=== PATIENT | male | born 1980 | race Caucasian/White ===

== ENCOUNTER 2019-08-25 07:55 | Inpatient (IN) | payer MEDICAID ==
[~2019-08-25] VITALS: Ht 188 cm; Wt 75.0 kg
[2019-08-25 09:10] LABS: BASOPHILS % (AUTO) 0.2 % (0-1); EOSINOPHILS # (AUTO) 0.1 X10'3 (0-0.9); EOSINOPHILS % (AUTO) 0.6 % (0-6); HEMATOCRIT 44.1 % (42.0-52.0); HEMOGLOBIN 14.4 g/dl (14.0-17.9); LYMPHOCYTES # (AUTO) 1.3 X10'3 (1.1-4.8); LYMPHOCYTES % (AUTO) 8.3 % (21-51); MEAN CORPUSCULAR HGB CONC 32.7 g/dL (33.0-36.5); MEAN CORPUSCULAR VOLUME 91.7 FL (78-98); MEAN PLATELET VOLUME 8.2 FL (7.4-10.4); MONOCYTES # (AUTO) 1.3 X10'3 (0-0.9); MONOCYTES % (AUTO) 8.3 % (2-12); NEUTROPHILS # (AUTO) 13.1 X10'3 (1.8-7.7); NEUTROPHILS % (AUTO) 82.6 % (42-75); PLATELET COUNT 325 X10'3 (140-440); RED BLOOD COUNT 4.81 X10'6 (4.70-6.10); RED CELL DISTRIBUTION WIDTH 14.3 % (11.5-14.5); WHITE BLOOD COUNT 15.8 X10'3 (4.5-11.0)
[2019-08-25 09:26] LABS: PARTIAL THROMBOPLASTIN TIME 34 SECONDS (22-32)
[2019-08-25 09:27] LABS: ALANINE AMINOTRANSFERASE 24 U/L (12-78); ALBUMIN 4.1 G/DL (3.4-5.0); ALBUMIN/GLOBULIN RATIO 1.1 (1.1-1.5); ALKALINE PHOSPHATASE 70 IU/L (46-116); ANION GAP 10 (8-16); ASPARTATE AMINO TRANSFERASE 19 U/L (10-37); BILIRUBIN,TOTAL 0.9 MG/DL (0.1-1.0); BLOOD UREA NITROGEN 13 MG/DL (7-18); BUN/CREATININE RATIO 15.1 (5.4-32.0); CALCIUM 9.1 MG/DL (8.5-10.1); CHLORIDE 100 MMOL/L (99-107); CREATININE 0.86 MG/DL (0.60-1.10); GLUCOSE 102 MG/DL (70-104); MAGNESIUM 1.9 MG/DL (1.5-2.4); POTASSIUM 3.8 MMOL/L (3.5-5.1); SODIUM 135 MMOL/L (135-145); TOTAL CARBON DIOXIDE 25.4 MMOL/L (24-32); eGFR > 90 ML/MIN
[2019-08-25] MEDS ORDERED: vancomycin/NS 1 GM ADD-VANTAGE 250 ML IV ONE (10:05)
[2019-08-25] MEDS ORDERED: normal saline 1000ML IV soln IVB ONE (10:05)
[2019-08-25] MEDS ORDERED: ceFOXitin 1 GM/D5W 50mL IVPB 50 ML IV ONE (10:05)
[2019-08-25] MEDS ORDERED: morphine 4 MG/ML inj SYRINge IV ONE (10:05)
[2019-08-25] MEDS ORDERED: iohexol 300mg/ml 100ml inj. ONE (10:19)
[2019-08-25] MEDS ORDERED: ondansetron/PF 4mg/2ml inj IV ONE (10:45)
[2019-08-25] MEDS ORDERED: TETanus/Pertussis (Acell)/Diphther VAC/PF (Tdap-Adult) 0.5ml syringe IMVAC ONE (10:45)
[2019-08-25] MEDS ORDERED: NO HOME MEDS (11:24)
[2019-08-25] MEDS ORDERED: mag hydrox/Alum hydrox/simeth 30ml oral suspension PO PRN (11:40)
[2019-08-25] MEDS ORDERED: magnesium 2GM in 50ml NS 50 ML IV PRN (11:40)
[2019-08-25] MEDS ORDERED: magnesium Cl slow-release 64mg tablet PO PRN (11:40)
[2019-08-25] MEDS ORDERED: acetaminophen 325mg tablet PO PRN ×2 (11:40)
[2019-08-25] MEDS ORDERED: potassium Cl 20 mEq SR tablet PO PRN ×2 (11:40)
[2019-08-25] MEDS ORDERED: HYDROcodone/acetaminophen 5mg/325mg tablet PO PRN (11:40)
[2019-08-25] MEDS ORDERED: morphine 2 MG/ML inj. syringe IV PRN ×2 (11:40)
[2019-08-25] MEDS ORDERED: magnesium 4gm in 100ml NS 100 ML IV PRN (11:40)
[2019-08-25] MEDS ORDERED: potassium CL 10mEq/100ml bag 100 ML IV PRN ×2 (11:40)
[2019-08-25] MEDS ORDERED: magnesium hydroxide 30ml (MOM) UD suspension PO PRN (11:40)
[2019-08-25] MEDS ORDERED: ondansetron/PF 4mg/2ml inj IV PRN (11:40)
[2019-08-25] MEDS ORDERED: diphenhydrAMINE 25mg capsule PO PRN (11:40)
[2019-08-25] MEDS: HYDROcodone/acetaminophen 10/325mg tab PO PRN ×2 (12:10→17:44)
[2019-08-25 12:27] LABS: HEMOGLOBIN A1C 5.7 % (4.5-6.2)
[2019-08-25] MEDS: normal saline 1000ml 1,000 ML IV SCH ×2 (13:21→21:40)
[2019-08-25] MEDS: piperacillin/tazo 3.375gm/50ml 50 ML IV SCH ×2 (13:49→16:44)
[2019-08-25 14:45] VITALS: BP 148/85
--- NOTE | 2019-08-25 15:08 | NUR ---
Received report from JULIAN Ventura in ER. Patient came up to the floor with zosyn and normal saline infusing. VSS stable at 98.0F BP 148/85 HR 77 O2 98% on room air. Pain at an 8/10 RR 14. will continue to monitor.
[2019-08-25 18:00] VITALS: BP 130/87
[2019-08-25] MEDS: K and/or MAG REPLACEMENT MC SCH (20:00)
[2019-08-25] MEDS: heparin, porcine 5000 units/ml vial SQ SCH (20:00)
[2019-08-25] MEDS: vancomycin/NS 1 GM ADD-VANTAGE 250 ML X 1 DOSE IV SCH (20:12)
[2019-08-25 23:28] VITALS: BP 133/89
[2019-08-26] MEDS: piperacillin/tazo 3.375gm/50ml 50 ML IV SCH ×3 (00:15→17:57)
[2019-08-26 01:50] LABS: CLARITY,URINE CLEAR (Clear); COLOR,URINE YELLOW (Yellow); GLUCOSE, URINE NEGATIVE (Neg); KETONES,URINE NEGATIVE (Neg); LEUKOCYTE ESTERASE ,URINE NEGATIVE (Neg); NITRITES, URINE NEGATIVE (Neg); OCCULT BLOOD,URINE NEGATIVE (Neg); PROTEIN,URINE NEGATIVE (Neg)
[2019-08-26 01:54] LABS: UA COLLECTION TYPE CLN CATCH MIDSTREAM
[2019-08-26 01:58] LABS: URINE AMPHETAMINE SCREEN POSITIVE (Neg); URINE BARBITUATE SCREEN NEGATIVE (Neg); URINE BENZODIAZEPINES SCREEN NEGATIVE (Neg); URINE CANNABINOID SCREEN POSITIVE (Neg); URINE COCAINE SCREEN NEGATIVE (Neg); URINE METHADONE SCREEN NEGATIVE (Neg); URINE OPIATE SCREEN POSITIVE (Neg); URINE PHENCYCLIDINE SCREEN NEGATIVE (Neg)
[2019-08-26] MEDS: vancomycin/NS 1 GM ADD-VANTAGE 250 ML X 1 DOSE IV SCH ×2 (03:07→11:10)
[2019-08-26] MEDS: normal saline 1000ml 1,000 ML IV SCH ×2 (03:07→17:58)
[2019-08-26 05:27] LABS: BASOPHILS % (AUTO) 0.1 % (0-1); EOSINOPHILS # (AUTO) 0.2 X10'3 (0-0.9); EOSINOPHILS % (AUTO) 1.6 % (0-6); HEMATOCRIT 42.2 % (42.0-52.0); HEMOGLOBIN 13.5 g/dl (14.0-17.9); LYMPHOCYTES # (AUTO) 1.3 X10'3 (1.1-4.8); LYMPHOCYTES % (AUTO) 9.7 % (21-51); MEAN CORPUSCULAR HEMOGLOBIN 29.5 PG (27.0-31.0); MEAN CORPUSCULAR HGB CONC 31.9 g/dL (33.0-36.5); MEAN CORPUSCULAR VOLUME 92.5 FL (78-98); MEAN PLATELET VOLUME 8.5 FL (7.4-10.4); MONOCYTES # (AUTO) 1.2 X10'3 (0-0.9); MONOCYTES % (AUTO) 8.9 % (2-12); NEUTROPHILS % (AUTO) 79.7 % (42-75); PLATELET COUNT 267 X10'3 (140-440); RED BLOOD COUNT 4.56 X10'6 (4.70-6.10); RED CELL DISTRIBUTION WIDTH 14.5 % (11.5-14.5); WHITE BLOOD COUNT 13.8 X10'3 (4.5-11.0)
[2019-08-26 05:31] LABS: ALANINE AMINOTRANSFERASE 18 U/L (12-78); ALBUMIN 3.1 G/DL (3.4-5.0); ALKALINE PHOSPHATASE 57 IU/L (46-116); ANION GAP 7 (8-16); ASPARTATE AMINO TRANSFERASE 13 U/L (10-37); BILIRUBIN,TOTAL 0.4 MG/DL (0.1-1.0); BLOOD UREA NITROGEN 13 MG/DL (7-18); BUN/CREATININE RATIO 15.5 (5.4-32.0); CALCIUM 8.3 MG/DL (8.5-10.1); CHLORIDE 107 MMOL/L (99-107); CHOL/HDL RATIO 2.3 (0.00-4.99); CHOLESTEROL 134 MG/DL (0-200); CREATININE 0.84 MG/DL (0.60-1.10); GLUCOSE 97 MG/DL (70-104); HDL CHOLESTEROL 58 MG/DL (35-60); LDL CHOLESTEROL 67 MG/DL (50-100); MAGNESIUM 1.9 MG/DL (1.5-2.4); PHOSPHORUS 3.2 MG/DL (2.3-4.5); POTASSIUM 4.1 MMOL/L (3.5-5.1); SODIUM 138 MMOL/L (135-145); TOTAL CARBON DIOXIDE 23.6 MMOL/L (24-32); TOTAL PROTEIN 6.3 G/DL (6.4-8.2); TRIGLYCERIDES 42 MG/DL (20-135); eGFR > 90 ML/MIN
--- NOTE | 2019-08-26 06:25 | NUR ---
Patient in room [facility]. I have received report from JULIAN DAWSON and had the opportunity to ask questions and assume patient care.
[2019-08-26 07:00] VITALS: BP 124/87
[2019-08-26] MEDS: K and/or MAG REPLACEMENT MC SCH ×2 (07:51→20:00)
[2019-08-26] MEDS: heparin, porcine 5000 units/ml vial SQ SCH ×2 (07:59→19:45)
[2019-08-26] MEDS ORDERED: VANCOMYCIN LEVEL IV ONE (10:30)
[2019-08-26 11:00] VITALS: BP 135/89
--- NOTE | 2019-08-26 15:05 | NUR ---
Malnutrition Consult: Pt admit w/ L hand abscess and meth abuse. PO 100% avg regular diet, normal strength, and no edema. Pt does not meet malnutrition criteria at this time. Addendum: 08/26/19 at [address] Amended: Links added.
[2019-08-26] MEDS: HYDROcodone/acetaminophen 10/325mg tab PO PRN (17:57)
--- NOTE | 2019-08-26 18:20 | NUR ---
Problems reprioritized. Patient report given, questions answered & plan of care reviewed with JULIAN DAWSON.
[2019-08-26] MEDS ORDERED: VANCOMYCIN 1,500MG inj. 1,500 MG in normal saline 500ml IV soln 500 ML IV SCH (19:00)
[2019-08-26 19:12] VITALS: BP 128/88
[2019-08-26] MEDS: lactobacillus rhamnosus 10,000 MMU CELLS/CAPSULE PO SCH (19:45)
[2019-08-26] MEDS: VANCOmycin 1250MG/NS 250ml Bag 250 ML IV SCH (19:50)
[2019-08-27] VITALS: BP 134/90
[2019-08-27] MEDS: piperacillin/tazo 3.375gm/50ml 50 ML IV SCH ×2 (00:19→08:40)
--- NOTE | 2019-08-27 01:09 | NUR ---
pt requesting to shower. set up for pre op shower. refused to have abscess on left hand covered for shower said it needed to be rinsed off and have heat on it.
[2019-08-27 01:11] VITALS: BP 134/90
--- NOTE | 2019-08-27 01:29 | NUR ---
after shower pt refuses to have abscess rewrapped, says he just wants to sleep and get rest. will continue to monitor
[2019-08-27] MEDS: VANCOmycin 1250MG/NS 250ml Bag 250 ML IV SCH (03:05)
[2019-08-27] MEDS: normal saline 1000ml 1,000 ML IV SCH ×2 (03:40→08:47)
[2019-08-27 05:36] LABS: ALANINE AMINOTRANSFERASE 20 U/L (12-78); ALBUMIN/GLOBULIN RATIO 0.8 (1.1-1.5); ALKALINE PHOSPHATASE 55 IU/L (46-116); ANION GAP 7 (8-16); ASPARTATE AMINO TRANSFERASE 12 U/L (10-37); BILIRUBIN,TOTAL 0.4 MG/DL (0.1-1.0); BLOOD UREA NITROGEN 13 MG/DL (7-18); BUN/CREATININE RATIO 12.3 (5.4-32.0); CALCIUM 8.7 MG/DL (8.5-10.1); CHLORIDE 103 MMOL/L (99-107); CREATININE 1.06 MG/DL (0.60-1.10); GLUCOSE 94 MG/DL (70-104); MAGNESIUM 1.9 MG/DL (1.5-2.4); PHOSPHORUS 3.7 MG/DL (2.3-4.5); POTASSIUM 4.5 MMOL/L (3.5-5.1); SODIUM 136 MMOL/L (135-145); TOTAL CARBON DIOXIDE 26.3 MMOL/L (24-32); TOTAL PROTEIN 6.8 G/DL (6.4-8.2); eGFR 78 ML/MIN
[2019-08-27 05:51] LABS: BASOPHILS # (AUTO) 0.1 X10'3 (0-0.2); BASOPHILS % (AUTO) 0.6 % (0-1); EOSINOPHILS # (AUTO) 0.3 X10'3 (0-0.9); EOSINOPHILS % (AUTO) 2.6 % (0-6); HEMATOCRIT 41.7 % (42.0-52.0); HEMOGLOBIN 13.5 g/dl (14.0-17.9); LYMPHOCYTES # (AUTO) 1.5 X10'3 (1.1-4.8); LYMPHOCYTES % (AUTO) 12.6 % (21-51); MEAN CORPUSCULAR HEMOGLOBIN 29.6 PG (27.0-31.0); MEAN CORPUSCULAR HGB CONC 32.3 g/dL (33.0-36.5); MEAN CORPUSCULAR VOLUME 91.4 FL (78-98); MEAN PLATELET VOLUME 9.2 FL (7.4-10.4); MONOCYTES # (AUTO) 1.1 X10'3 (0-0.9); MONOCYTES % (AUTO) 9.4 % (2-12); NEUTROPHILS % (AUTO) 74.8 % (42-75); PLATELET COUNT 298 X10'3 (140-440); RED BLOOD COUNT 4.56 X10'6 (4.70-6.10); RED CELL DISTRIBUTION WIDTH 14.6 % (11.5-14.5); WHITE BLOOD COUNT 12.1 X10'3 (4.5-11.0)
[2019-08-27] MEDS: heparin, porcine 5000 units/ml vial SQ SCH (06:54)
[2019-08-27 07:00] VITALS: BP 124/89
[2019-08-27 08:00] VITALS: BP 124/89
[2019-08-27] MEDS: lactobacillus rhamnosus 10,000 MMU CELLS/CAPSULE PO SCH (08:40)
[2019-08-27] MEDS: HYDROcodone/acetaminophen 10/325mg tab PO PRN (08:40)
--- NOTE | 2019-08-27 09:08 | NUR ---
PAGER ID: [phone] MESSAGE: Joel Balbuena [id number] Pt. wants to leave AMA for a cigarette. Ativan and nicotine patch? Please speak with pt? Sumi [phone]
--- NOTE | 2019-08-27 09:25 | NUR ---
Pt. left [facility]. aware.
[2019-08-27] MEDS ORDERED: MESSAGE TO NURSING PO ONE (17:30)
[2019-08-27] MEDS ORDERED: VANCOMYCIN LEVEL IV ONE (18:30)
== END 2019-08-27 09:24 | disposition left against medical advice (07) | DRG 383 ==
LOC: ER 07:56 → ED HOLD 11:40 → SUR 3N 14:17
PROVIDERS: ADMIT Family Medicine; ATTEND Family Medicine
PROC: 3E0234Z Introduction of Serum, Toxoid and Vaccine into Muscle, Percutaneous Approach (ICD-10-PCS; principal; 2019-08-25)
PROC: BP2K1ZZ Computerized Tomography (CT Scan) of Left Forearm using Low Osmolar Contrast (ICD-10-PCS; 2019-08-25)
DX: L02.512 Cutaneous abscess of left hand (principal); F12.10 Cannabis abuse, uncomplicated; F15.10 Other stimulant abuse, uncomplicated; F17.210 Nicotine dependence, cigarettes, uncomplicated; X58.XXXA Exposure to other specified factors, initial encounter; Z53.29 Procedure and treatment not carried out because of patient's decision for other reasons; R65.10 Systemic inflammatory response syndrome (SIRS) of non-infectious origin without acute organ dysfunction; S61.032A Puncture wound without foreign body of left thumb without damage to nail, initial encounter; Z87.11 Personal history of peptic ulcer disease; Y93.89 Activity, other specified; Y92.89 Other specified places as the place of occurrence of the external cause; Y99.8 Other external cause status; Z23 Encounter for immunization; Z71.6 Tobacco abuse counseling; Z71.51 Drug abuse counseling and surveillance of drug abuser
CPT/HCPCS: 36415; 71045; 73201; 80053; 80061; 80202; 80305; 81003; 83036; 83605; 83735; 84100; 84145; 85025; 85610; 85730; 87040; 87070; 87075; 87077; 87081; 87186; 90471; 90715; 96365; 96368; 96375; 96376; 99285; G0378; J0694; J1644; J2270; J2405; J2543; J3370; J7030; Q9967

== ENCOUNTER 2020-11-03 09:41 | Emergency (ER) | payer MEDICAID ==
[~2020-11-03] VITALS: Ht 188 cm; Wt 77.3 kg
[~2020-11-03 09:41] MED LIST: NO HOME MEDS
[2020-11-03] MEDS ORDERED: CefTRIAXone 2gm/D5W 50ml BAG 50 ML IV ONE (09:45)
[2020-11-03] MEDS ORDERED: vancomycin/NS 1 GM ADD-VANTAGE 250 ML IV ONE (09:45)
[2020-11-03] MEDS ORDERED: normal saline 1000ML IV soln IV ONE (10:20)
[2020-11-03] MEDS ORDERED: ondansetron/PF 4mg/2ml inj IV ONE ×2 (10:20→11:40)
[2020-11-03] MEDS ORDERED: morphine 4 MG/ML inj SYRINge IV ONE (10:20)
[2020-11-03 10:31] LABS: BASOPHILS # (AUTO) 0.1 X10'3 (0-0.2); BASOPHILS % (AUTO) 0.4 % (0-1); EOSINOPHILS % (AUTO) 0.2 % (0-6); HEMATOCRIT 37.7 % (42.0-52.0); HEMOGLOBIN 12.2 g/dl (14.0-17.9); LYMPHOCYTES # (AUTO) 1.3 X10'3 (1.1-4.8); LYMPHOCYTES % (AUTO) 9.3 % (21-51); MEAN CORPUSCULAR HEMOGLOBIN 30.1 PG (27.0-31.0); MEAN CORPUSCULAR HGB CONC 32.4 g/dL (33.0-36.5); MEAN CORPUSCULAR VOLUME 92.7 FL (78-98); MONOCYTES % (AUTO) 7.2 % (2-12); NEUTROPHILS # (AUTO) 11.1 X10'3 (1.8-7.7); NEUTROPHILS % (AUTO) 82.9 % (42-75); PLATELET COUNT 351 X10'3 (140-440); RED BLOOD COUNT 4.06 X10'6 (4.70-6.10); RED CELL DISTRIBUTION WIDTH 14.9 % (11.5-14.5); WHITE BLOOD COUNT 13.4 X10'3 (4.5-11.0)
[2020-11-03 10:42] LABS: ALANINE AMINOTRANSFERASE 115 U/L (12-78); ALBUMIN 2.7 G/DL (3.4-5.0); ALBUMIN/GLOBULIN RATIO 0.9 (1.1-1.5); ALKALINE PHOSPHATASE 96 IU/L (46-116); ANION GAP 7 (8-16); ASPARTATE AMINO TRANSFERASE 43 U/L (10-37); BILIRUBIN,TOTAL 0.5 MG/DL (0.1-1.0); BLOOD UREA NITROGEN 19 MG/DL (7-18); CALCIUM 7.7 MG/DL (8.5-10.1); CHLORIDE 105 MMOL/L (99-107); GLUCOSE 96 MG/DL (70-104); MAGNESIUM 1.8 MG/DL (1.5-2.4); POTASSIUM 4.1 MMOL/L (3.5-5.1); SODIUM 138 MMOL/L (135-145); TOTAL CARBON DIOXIDE 26.1 MMOL/L (24-32); TOTAL PROTEIN 5.6 G/DL (6.4-8.2); eGFR 83 ML/MIN
[2020-11-03] MEDS ORDERED: fentaNYL/PF 50MCG/1 ML 2ML syringe IV ONE (11:40)
[2020-11-03] MEDS ORDERED: ondansetron/PF 4mg/2ml inj IV PRN (11:45)
[2020-11-03] MEDS ORDERED: morphine 2 MG/ML inj. syringe IV PRN ×2 (11:45)
[2020-11-03] MEDS ORDERED: HYDROcodone/acetaminophen 5mg/325mg tablet PO PRN (11:45)
[2020-11-03] MEDS ORDERED: acetaminophen 325mg tablet PO PRN (11:45)
[2020-11-03] MEDS ORDERED: magnesium hydroxide 30ml (MOM) UD suspension PO PRN (11:45)
[2020-11-03] MEDS ORDERED: mag hydrox/Alum hydrox/simeth 30ml oral suspension PO PRN (11:45)
[2020-11-03] MEDS ORDERED: normal saline 1000ml 1,000 ML IV SCH (11:45)
[2020-11-03 12:07] VITALS: BP 127/99
--- NOTE | 2020-11-03 13:35 | NUR ---
WALKED BY PT ROOM WITH PT SCREAMING TO HAVE HIS IV TAKEN OUT. PT STATES HE IS NOT STAYING HERE AND WANTS TO LEAVE. EXPLAINED PLANNED ADMISSION. PT REFUSES TO STAY. 2 IVS REMOVED WITH CANULA INTACT. PT WALKED OUT OF ED WITH STEADY GAIT. WILL NOTIFY HOSPITALIST.
[2020-11-03] MEDS ORDERED: docusate sod 100mg capsule PO SCH (20:00)
[2020-11-03] MEDS ORDERED: vancomycin/NS 1 GM ADD-VANTAGE 250 ML X 1 DOSE IV SCH (20:00)
[2020-11-04] MEDS ORDERED: enoxaparin 40mg/0.4ml syringe SUBCUT SCH (08:00)
[2020-11-04] MEDS ORDERED: CefTRIAXone 2gm/D5W 50ml BAG 50 ML IV SCH (08:00)
[2020-11-04] MEDS ORDERED: VANCOMYCIN LEVEL IV ONE (19:30)
== END 2020-11-03 13:47 | disposition left against medical advice (07) ==
LOC: ER 09:42 → ED HOLD 11:46 → UNDOADMIN 11:46 → UNDODISIN 13:35
DX: M79.641 Pain in right hand (principal); L03.113 Cellulitis of right upper limb; F12.90 Cannabis use, unspecified, uncomplicated; F15.90 Other stimulant use, unspecified, uncomplicated; Z88.1 Allergy status to other antibiotic agents
CPT/HCPCS: 36415; 71045; 73130; 80053; 83605; 83735; 84145; 85025; 87040; 93005; 96365; 96366; 96368; 96375; 99285; J0696; J2270; J2405; J3010; J3370; J7030; G0378

== ENCOUNTER 2020-11-08 03:34 | Emergency (ER) | payer MEDICAID ==
[~2020-11-08] VITALS: Ht 188 cm; Wt 77.3 kg
[2020-11-08] MEDS ORDERED: CEPH-585 PO (06:36)
[2020-11-08] MEDS ORDERED: SULF1TAB49 PO (06:36)
[2020-11-08 08:20] VITALS: BP 110/70
[2020-11-08 08:53] LABS: D-DIMER 1.52 MG/L FEU (0-0.50)
== END 2020-11-08 08:22 | disposition home or self-care (01) ==
LOC: ER 03:35
DX: L03.032 Cellulitis of left toe (principal); F12.90 Cannabis use, unspecified, uncomplicated; F15.90 Other stimulant use, unspecified, uncomplicated; Z88.1 Allergy status to other antibiotic agents
CPT/HCPCS: 36415; 85379; 93971; 99284

== ENCOUNTER 2020-11-16 04:38 | Emergency (ER) | payer MEDICAID ==
[~2020-11-16] VITALS: Ht 188 cm; Wt 77.3 kg
[~2020-11-16 04:38] MED LIST changes: +CEPH-585 PO; +SULF1TAB49 PO
[2020-11-16] MEDS ORDERED: ketorolac tromethamine 15mg/ml inj. IM ONE (04:45)
[2020-11-16] MEDS ORDERED: METH-797 PO (04:48)
[2020-11-16 05:03] VITALS: BP 120/95
[2020-11-17] MEDS ORDERED: FURO40TA4 PO (21:38)
== END 2020-11-16 05:04 | disposition home or self-care (01) ==
LOC: ER 04:38
DX: M62.838 Other muscle spasm (principal); Z59.00 Homelessness unspecified
CPT/HCPCS: 96372; 99283; J1885

== ENCOUNTER 2020-11-17 18:07 | Emergency (ER) | payer MEDICAID ==
[~2020-11-17] VITALS: Ht 188 cm; Wt 77.0 kg
[~2020-11-17 18:07] MED LIST changes: +METH-797 PO
[2020-11-17 18:55] VITALS: BP 125/102
[2020-11-17 19:50] LABS: BASOPHILS # (AUTO) 0.1 X10'3 (0-0.2); EOSINOPHILS # (AUTO) 0.1 X10'3 (0-0.9); LYMPHOCYTES # (AUTO) 1.7 X10'3 (1.1-4.8); MONOCYTES # (AUTO) 0.7 X10'3 (0-0.9); RED CELL DISTRIBUTION WIDTH 15.3 % (11.5-14.5)
[2020-11-17 19:52] LABS: BASOPHILS % (AUTO) 0.6 % (0-1); EOSINOPHILS % (AUTO) 0.8 % (0-6); HEMATOCRIT 38.7 % (42.0-52.0); HEMOGLOBIN 12.6 g/dl (14.0-17.9); MEAN CORPUSCULAR HEMOGLOBIN 29.7 PG (27.0-31.0); MEAN CORPUSCULAR HGB CONC 32.5 g/dL (33.0-36.5); MEAN CORPUSCULAR VOLUME 91.4 FL (78-98); MEAN PLATELET VOLUME 8.6 FL (7.4-10.4); MONOCYTES % (AUTO) 5.7 % (2-12); NEUTROPHILS # (AUTO) 10.4 X10'3 (1.8-7.7); NEUTROPHILS % (AUTO) 79.9 % (42-75); PLATELET COUNT 426 X10'3 (140-440); RED BLOOD COUNT 4.24 X10'6 (4.70-6.10); WHITE BLOOD COUNT 13.1 X10'3 (4.5-11.0)
[2020-11-17 20:02] LABS: ALANINE AMINOTRANSFERASE 68 U/L (12-78); ALBUMIN 2.7 G/DL (3.4-5.0); ALBUMIN/GLOBULIN RATIO 0.7 (1.1-1.5); ALKALINE PHOSPHATASE 104 IU/L (46-116); ANION GAP 8 (8-16); ASPARTATE AMINO TRANSFERASE 38 U/L (10-37); BILIRUBIN,TOTAL 0.5 MG/DL (0.1-1.0); BLOOD UREA NITROGEN 23 MG/DL (7-18); BUN/CREATININE RATIO 22.5 (5.4-32.0); CALCIUM 8.5 MG/DL (8.5-10.1); CHLORIDE 105 MMOL/L (99-107); CREATININE 1.02 MG/DL (0.60-1.10); GLUCOSE 95 MG/DL (70-104); POTASSIUM 4.6 MMOL/L (3.5-5.1); SODIUM 140 MMOL/L (135-145); TOTAL CARBON DIOXIDE 26.6 MMOL/L (24-32); TOTAL PROTEIN 6.4 G/DL (6.4-8.2); eGFR 81 ML/MIN
[2020-11-17 20:09] LABS: TROPONIN I 0.12 NG/ML (0.0-0.05)
[2020-11-17] MEDS ORDERED: furosemide 20MG tablet PO ONE (20:35)
[2020-11-17] MEDS ORDERED: FURO40TA4 PO (21:38)
== END 2020-11-17 21:49 | disposition home or self-care (01) ==
LOC: ER 18:07
DX: R05.9 Cough, unspecified (principal); Z20.822 Contact with and (suspected) exposure to COVID-19; R53.83 Other fatigue; R06.02 Shortness of breath; R09.89 Other specified symptoms and signs involving the circulatory and respiratory systems; R07.81 Pleurodynia; I50.9 Heart failure, unspecified; F17.200 Nicotine dependence, unspecified, uncomplicated; F12.90 Cannabis use, unspecified, uncomplicated; F15.90 Other stimulant use, unspecified, uncomplicated; Z91.14 Patient's other noncompliance with medication regimen; Z88.1 Allergy status to other antibiotic agents; Z79.2 Long term (current) use of antibiotics
CPT/HCPCS: 71045; 80053; 83880; 84484; 85025; 87635; 93005; 99285; C9803